=== PATIENT | female | born 1970 | race Caucasian/White ===

== ENCOUNTER 2024-10-04 08:20 | Day surgery (SDC) | payer OTHER, SELFPAY ==
[2024-10-03 09:07] VITALS: BMI 28.5
[2024-10-04] VITALS (12 sets, daily range): BP systolic 94–108; BP diastolic 45–69; PULSE 60–85; RESP 13–19; TEMP 36.1–37.4; O2SAT 96–100; BMI 28.3
--- NOTE | 2024-10-04 | PATH_ITS ---
[facility] Accession Number: [id number] No. of containers..01 Tissue . 01 Material submitted: . uterus - UTERUS WITH CERVIX AND BILATERAL FALLOPIAN TUBES . 01 Diagnosis: UTERUS WITH CERVIS AND BILATERAL FALLOPIAN TUBES, TOTAL LAPAROSCOPIC HYSTERECTOMY WITH BILATERAL SALPINGECTOMY (WEIGHT 270 GRAMS): Cervix with prominent Nabothian gland cysts; negative for significant atypia. Endocervix with prominent Nabothian gland cysts; negative for significant atypia. Proliferative endometrium; negative for significant atypia. Myometrium with two intramural leiomyomas (12 mm and 15 mm in greatest dimension). Uterine serosa with no significant histomorphologic abnormality. Longer-described fallopian tube, complete cross-sections, with rare benign paratubal cysts (up to 17 mm in greatest dimension); negative for significant atypia. [place]-described fallopian tube, complete cross-sections; negative for significant atypia. [facility] 10/09/2024 1050 Local . 01 Electronically signed: . Annie Richards MD, Pathologist NPI- [id number] . 01 Gross description: . Received in formalin with two patient identifiers and uterus with cervix and bilateral fallopian tubes, is a fragmented uterus (270 grams, 11.5 x 10.4 x 6.8 cm in aggregate) with a detached, opened cervix reapproximated to measure 4.4 x 3.1 cm with a slit-like os, 0.8 cm in diameter. Two detached, unoriented, fimbriated fallopian tubes (6.6 x 1.0 cm and 5.0 x 0.5 cm) and no additional adnexa. The ectocervix is nunez, smooth, and glistening, and the paracervical margin is inked blue. The attached portion of endocervical canal has nunez, herringbone, unremarkable mucosa. The serosa is nunez and smooth with no hemorrhage or adhesion identified. The intact portion of endometrial cavity measures 4.4 cm from cornu to cornu, and 3.2 cm in length, with pink lush endometrium that averages 0.3 cm thick. The myometrium is significantly trabecular and measures up to 3.5 cm in maximum thickness with two well-circumscribed white whorled nodules (1.5 x 1.3 x 1.3 cm and 1.2 x 0.9 x 0.9 cm). The smaller nodules has centrally located pinpoint areas of hemorrhage. . Both tubes have violaceous, smooth serosa with cystic structures up to 1.7 cm in greatest dimension filled with nunez, serous fluid. The lumina are stellate and unremarkable. . Multiple Games Dealer sections are submitted as follows: A1-A2: Cervix. A3: Full thickness composite section with larger nodule. A4: Full thickness composite section with smaller hemorrhagic nodule. A5: Longer fallopian tube to include one-half of bisected fimbriae and cross sections. A6: Cross section of longer fallopian tube with cysts. A7: [place] fallopian tube to include one-half of bisected fimbriae and cross sections. ([id number]) /MRV 10/05/2024 1750 Local . 01 Pathologist provided ICD-10: N92.0, D25.9, N94.10, D50.0 . 01 CPT . 483062 Specimen Comment: A courtesy copy of this report has been sent to [phone] Performed at: [address] [facility] [address] [address], [place], [place] [id number] MD Quentin Denson MD Phone: [phone]
--- NOTE | 2024-10-04 08:49 | PM.PREOP ---
Pre-operative Note COVID-19 COVID-19 status: Not tested Interval Note History & Physical reviewed/Exam performed by Physician: Yes Changes to H&P: No
[2024-10-04] MEDS: ACETAMINOPHEN 325 MG TABLET 975 MG PO (09:09)
[2024-10-04] MEDS: LACTATED RINGERS 1,000 ML 42 ML IV (09:11)
[2024-10-04] MEDS: CEFAZOLIN 2 GM/100 ML PREMIX 100 ML IV (10:13)
--- NOTE | 2024-10-04 10:35 | SUR.OPER ---
Lithotomy on padded OR bed. [place] Pad Positioner under torso. Head on pillow, arms padded and tucked at sides. Legs secured in padded yellow fins stirrups.
[2024-10-04] MEDS: BUPIVACAINE 0.5% W/ EPI (PF) 30 ML VIAL INJ (10:51)
--- NOTE | 2024-10-04 12:02 | PM.GYNOP.1 ---
Operative Date/Time/Diagnoses Date of procedure: 10/04/24 Time of procedure: 10:15 Pre-op diagnosis: Menorrhagia Uterine fibroids Post-op diagnosis: same Procedure & Clinicians Procedure: Procedures Operation Date: 10/04/24 09:45 Actual Procedure Side Surgeon p Total Laparoscopic Hysterectomy with bilateral Salpingectomy Patel Boland MD Indications: Astrid is a soto 54-year-old , LMP 07/30/2024 through the present, who presents in referral for evaluation of a long history of menorrhagia and the presence of uterine fibroids. Patient experienced menarche at age 14 and has had 2 vaginal births. She has had regular predictable periods up to this point which last as long as 10 or 11 days. In the earlier portion of each menses, she has flooding resulting in accidents which are extremely disruptive to her life and work. Her last Pap was 3 years ago and it was normal as have all of her Paps during her reproductive life. She has had 2 endometrial biopsies performed with her most recent in 2015 both of which were normal. Her blood loss with each period has been so significant that he has had a total of 5 iron infusions in the last 10 months. Review of systems is also notable for deep dyspareunia which is longstanding and positional. Patient has been dealing with the symptoms extended period of time and would very much like definitive therapy. We discussed all options and after discussion of conservative, medical based, and surgical options, patient would very much like to proceed with total laparoscopic hysterectomy with bilateral salpingectomy. She presents today for her scheduled surgery. Surgeon: Patel Boland Automotive Mechanical Engineer: Heidi Arriola Anesthesia Type: General Operative Notes Findings: The uterus is approximately 8 weeks in size and normal in shape and contour. Fallopian tubes and ovaries both appeared normal as well posterior cul-de-sac shows no evidence of scarring or endometriosis. Similarly the anterior cul-de-sac is free of scarring and adhesions. Appendix appears to be normal. Liver edge is normal gallbladder is prominent but uninflamed and unscarred. Closure Type: primary Specimen(s): left tube, right tube and uterus Applied: catheter Estimated blood loss (mL): 100 Blood products transfused: none Procedure in detail: With the patient in modified dorsal lithotomy position preparations were made by prepping and draping the patient in usual manner for vaginal surgery and insertion of León catheter. A pre-surgical time-out was then taken in accordance with [facility] policy. A bivalve speculum was then placed in the vagina and the cervix visualized. The anterior lip of the cervix was then grasped with a single-tooth tenaculum. The uterus was sounded to 9 cm, the endocervical canal dilated slightly, and a VCare uterine manipulator with a large colpotomy cup was placed. The umbilicus was then infiltrated with 0.5% Marcaine with epinephrine. A 1 cm umbilical incision was made transversely and a Veress needle was used to insufflate the abdominal cavity with carbon dioxide. Once the abdomen was appropriately insufflated, a 5 mm trocar and sleeve were then placed through the umbilical incision. The scope was placed through the trocar and the initial assessment of the intra-abdominal contents carried out. A 2nd and 3rd 5 mm port was then placed 1st in the right mid quadrant from then the left mid quadrant by infiltration of the skin and subcutaneous tissues, a 1 cm transverse incision and insertion of the 5 mm bladeless port. Using a 3 puncture technique, the abdomen and pelvis were inspected laparoscopy and photographically documented. Uterus is mobilized with the VCare manipulator and attention turned to the left adnexa. The distal tube was then grasped and the fimbria varicose divided after coagulation with the PowerSeal device. The dissection was then carried out toward the cornua and the fallopian tube amputated. The tube was removed through a 5 mm port and dissection was then carried down using the PowerSeal device so as to divide the utero-ovarian ligament and the round ligament with blunt and sharp dissection of the broad down to the level of the uterine artery. The uterine artery was then skeletonized after development of a bladder flap, coagulated, and divided. Once hemostasis was assured on the left side attention was turned to the right and the tube, utero-ovarian ligament, round ligament, and broad ligament were dissected in a fashion exactly the same as it had been on the left. The right uterine artery was then visualized after skeletonization and coagulated and divided. The uterus was seen to jeff after coagulation of both your arteries and the cup was identified through the vaginal muscularis at its insertion with the body of the cervix. Circumferential excision of the vaginal cup was accomplished without difficulty using monopolar current and the uterus mobilized. The uterus was then removed through the vagina and the vaginal cuff closed [id number] with a series of 0 Vicryl [id number] stitches. Hemostasis was excellent, the abdomen was re-insufflated, and the pelvis inspected laparoscopically. The pelvis was inspected for any abnormality or bleeding, and the ureters were each seen to be peristalsing freely. With complete hemostasis assured, the pneumoperitoneum was vented and the ports removed. All of the 5 mm ports were then closed with 4-0 Monocryl on the skin using inverted interrupted sutures. Skin glue was placed and after the glue was dried, an appropriate dressing was applied. The case was then terminated, the patient awakened, and then transferred to PACU after having tolerated the procedure well. Complications: none Post-operative Condition: stable Disposition: PACU Plan for aftercare: Recovery in ambulatory surgery in discharge home later today if pain is under control and she is tolerating oral intake well.
[2024-10-04] MEDS: ONDANSETRON 4 MG/2 ML INJ IV (12:30)
[2024-10-04] MEDS: HYDROMORPHONE 1 MG INJ IV (12:58)
[2024-10-04] MEDS: LACTATED RINGERS 1,000 ML 100 ML IV (13:00)
[2024-10-04] MEDS: SODIUM CHLORIDE 0.9% 500 ML 1000 ML IV (14:51)
[2024-10-04] MEDS: OXYCODONE IR 5 MG TABLET PO (15:37)
[2024-10-04] MEDS: ACETAMINOPHEN 325 MG TABLET 650 MG PO (17:38)
[2024-10-04] MEDS: KETOROLAC 30 MG/ML VIAL IV (18:49)
[2024-10-04] MEDS: DOCUSATE 100 MG CAPSULE 200 MG PO (20:58)
[2024-10-05] MEDS: ACETAMINOPHEN 325 MG TABLET 650 MG PO ×3 (00:28→11:00)
[2024-10-05] MEDS: KETOROLAC 30 MG/ML VIAL IV ×2 (00:28→06:21)
[2024-10-05 05:05] LABS: Add Manual Diff / Slide Review NO; Basophils Absolute Auto 0 /uL (0-100); Basophils Percent Auto 0.1 % (0-2); Eosinophils Absolute Auto 0 /uL (0-450); Eosinophils Percent Auto 0.2 % (2-4); Hematocrit 33.4 % (36-46); Hemoglobin 11.1 g/dL (12.0-16.0); Lymphocytes Absolute Auto 1200 /uL (1100-4500); Lymphocytes Percent Auto 8.7 % (25-40); Mean Corpuscular HGB Conc 33.1 % (30-36); Mean Corpuscular Hemoglobin 31.2 PG (26-34); Mean Corpuscular Volume 94.2 fL (80-100); Monocytes Absolute Auto 1100 /uL (0-900); Monocytes Percent Auto 7.8 % (3-14); Neutrophils Absolute Auto 11700 /uL (1500-7000); Neutrophils Percent Auto 83.2 % (50-75); Platelet Count 215 X10^3/uL (150-400); Red Blood Cell Count 3.55 X10^6/uL (4.0-5.2); Red Cell Distribution Width 12.1 % (11.6-14.8); White Blood Cell Count 14.1 X10^3/uL (4.5-11.0)
[2024-10-05 06:28] VITALS: BP 107/44; PULSE 57; RESP 15; O2SAT 97
--- NOTE | 2024-10-05 07:48 | CM.DANOTE ---
Initial DCP Assessment Visit Note Reviewed EMR and team rounds for pt's medical status and updates. Met with pt at bedside to introduce self and role, pt was found to be alert/oriented, expressing feeling comfortable and was asking about when she could discharge back home. Pt lives independently at baseline with her spouse in their own home in [place]. Either her mother or spouse will transport her home later this morning. No CM d/c assistance or resource needs are identified at this time. Payor: [facility] Attending: Dr. Boland Pt is a 54 year-old F post-op day 1 from a Bilateral laparoscopic total hysterectomy. Pt has a hx of excessive menstrual periods resulting in iron deficiency anemia secondary to blood loss and uterine fibroids. She did not have any surgical or postoperative complications, and pain is very minimal at this time. She shared that she is voiding and has been up walking with no lightheadedness this morning. DCP will continue to monitor for any further evolving d/c needs, however none are anticipated. Discharge Planning/Care Management Advanced directive, confirm from FAMILY Start: 10/04/24 17:50 Freq: Q24H Status: Active Protocol: Document 10/04/24 17:50 YAD (Rec: 10/04/24 17:50 YAD [id number]) Advance Directive, confirm on record Time 17:50 Person contacted Pt Copy received No CM Discharge Assessment Start: 10/05/24 07:47 Freq: Status: Active Protocol: Document 10/05/24 07:47 DPL (Rec: 10/05/24 07:48 DPL [id number]) Discharge Planning Assessment Assigned Manager Express MARISABEL Zheng Advance Directives? Yes Advance Directives on File No History Provided By Patient,Medical Record Has Patient been admitted in last 30 No days? Prior Living Arrangements House Household Members spouse Independent with ADL's Yes Is patient alert and oriented? Yes Comment N/A Caregiver for Another No Comment N/A Comment No d/c needs are identified at this time. Transportation Arrangement Mother or spouse. Referrals Initiated None needed Whiteboard Updated in Patient Room with Yes name and ext. # of Manager Express Review Status In Process Please Provide Date Initial DC 10/05/24 Assessment Was Performed Pre-Anesthesia Assessment Start: 10/03/24 09:07 Freq: Status: Complete Protocol: Document 10/03/24 09:07 LB (Rec: 10/03/24 09:10 LB [id number]) Pre-Anesthesia Assessment PAC Comment 10/03/24 Chart review. Patient Information Reviewed Via Chart Review Comment No testing identified. Primary Care Provider Kelly Herrera Seen Specialist in Last 12 Months Yes Specialist Seen Residue Furnace Operator Primary Language Niuean Preferred Language Niuean Corporate Strategy Associate Required No Height 162.56 cm Weight 75.296 kg Body Mass Index (BMI) 28.5 Anesthesia Review Requested No Upper Lining Cementer No Smoking Status Never smoker Patient is completely paralyzed or No completely immobile Is patient on oxygen? No Hx Sleep Apnea No Currently Taking a Beta Sonny No Anti-Coagulant Therapy No Cardiac Testing No Hx Pacemaker/ICD No Cardiac Clearance Received Not Applicable Chronic UTI No Urinary Catheter Present No Diabetes No Marital Status Patient Discharge Plan Description Return Home Emergency Contact Name Ed Coulter - Emergency Contact
[2024-10-05] MEDS: DOCUSATE 100 MG CAPSULE 200 MG PO (08:04)
--- NOTE | 2024-10-05 10:22 | PM.DS.1 ---
History of Present Illness History of Present Illness Date Patient Seen: 10/05/24 Time Patient Seen: 10:23 Chief complaint: Bilateral Laparoscopic Total Hysterectomy Narrative: Astrid is a soto 54-year-old , LMP 07/30/2024 through the present, who presents in referral for evaluation of a long history of menorrhagia and the presence of uterine fibroids. Patient experienced menarche at age 14 and has had 2 vaginal births. She has had regular predictable periods up to this point which last as long as 10 or 11 days. In the earlier portion of each menses, she has flooding resulting in accidents which are extremely disruptive to her life and work. Her last Pap was 3 years ago and it was normal as have all of her Paps during her reproductive life. She has had 2 endometrial biopsies performed with her most recent in 2015 both of which were normal. Her blood loss with each period has been so significant that he has had a total of 5 iron infusions in the last 10 months. Review of systems is also notable for deep dyspareunia which is longstanding and positional. Patient has been dealing with the symptoms extended period of time and would very much like definitive therapy. We discussed all options and after discussion of conservative, medical based, and surgical options, patient would very much like to proceed with total laparoscopic hysterectomy with bilateral salpingectomy. She presents today for her scheduled surgery. Discharge Providers Provider Date of admission: 10/04/2024 Discharge Date: 10/05/24 Primary care physician: Kelly Herrera MD Discharge provider: Patel Boland MD Summary Hospital Course Discharge Diagnosis: Intractable menorrhagia Anemia due to chronic blood loss Hospital Course: Astrid was admitted on the morning 10/04/2024 and underwent an uneventful total laparoscopic hysterectomy with bilateral salpingectomy. Full details of the procedure well summarized on my operative note of that date. Following her surgery the patient has done extremely well with prompt return of bowel and bladder function, she is ambulating independently, tolerating regular diet, and her pain is well relieved with oral pain medications. She will be discharged at this time to home in an afebrile normotensive condition after counseling regarding precautionary symptoms, limitations of activity, medications, and plans for follow-up which will be in 2 weeks. Medications at discharge will include resumption of any medications she was taking prior to admission as well as oxycodone 5 mg every 6 hours as needed for pain, and Cipro 500 mg p.o. b.i.d. x5 days as UTI prophylaxis following catheterization. Status at Discharge Cognitive/behavioral status at discharge: oriented Functional status at discharge: independent ambulation Overall status at discharge: patient is progressing back to baseline Time Spent with Patient Time spent: Less than 30 minutes Exam Vital Signs (past 8 hours): - 10/05/24 06:28 Pulse Rate 57 L Respiratory Rate 15 Blood Pressure 107/44 L Pulse Oximetry 97 Oxygen Flow Rate 0 Oxygen Delivery Method Room Air Oxygen Flow Rate 0 Const General: cooperative and comfortable Nutritional Appearance: average body habitus Orientation: alert and oriented x3 HENMT Head: normal to inspection, atraumatic and abrasion Ears: hearing grossly normal bilaterally Face and sinus: face symmetric Eyes General: appearance normal, both eyes and all related structures Conjunctivae: conjunctivae normal Sclera: sclerae normal EOM: EOM intact bilaterally Neck Neck: normal visual inspection Resp Effort & Inspection: normal respiratory effort and able to speak in complete sentences Auscultation: clear to auscultation bilaterally Cardio Rate: regular rate Rhythm: regular rhythm Heart Sounds: S1 normal, S2 normal and no murmurs GI Inspection: normal to inspection and incision (Surgical dressings clean and dry) Palpation: soft, no hepatosplenomegaly and tender (Mild, diffuse postsurgical tenderness) Auscultation: normoactive bowel sounds External Female Exam: other (No significant bleeding noted) Extrem General: no calf tenderness Psych Appearance: grossly normal Mental Status: mental status grossly normal Speech and Movement: speech and movement normal Mood: congruent mood Affect: normal affect Attitude: cooperative Thought Process: normal Thought Content: normal Judgment: judgment good Objective Labs 10/05/24 04:23 Labs: Laboratory Results - last 24 hr 10/05/24 04:23 WBC 14.1 H RBC 3.55 L Hgb 11.1 L Hct 33.4 L MCV 94.2 MCH 31.2 MCHC 33.1 RDW 12.1 Plt Count 215 Neut % (Auto) 83.2 H Lymph % (Auto) 8.7 L Lumpkin % (Auto) 7.8 Eos % (Auto) 0.2 L Baso % (Auto) 0.1 Neut # (Auto) 20044 H Lymph # (Auto) 1200 [place]kin # (Auto) 1100 H Eos # (Auto) 0 Baso # (Auto) 0 PFSH Social History household members: spouse Smoking Status: Never smoker Discharge Assessment & Plan Assessment and Plan Assessment: Intractable menorrhagia Anemia due to chronic blood loss Status post total laparoscopic hysterectomy with bilateral salpingectomy Plan of Treatment: Routine postoperative care with follow-up planned for 2 weeks after surgery. Discharge Plan Discharge Plan Patient Disposition: Home Provider Discharge Comment: Please review the written instructions she received when you were discharged from the hospital. Your follow-up appointment is scheduled for 2 weeks after your surgery and I look forward to seeing you then. If however in the meanwhile you have any issues, questions, or other concerns, please contact me either through the office phone at [phone], or via the patient portal. Discharge orders & Medications Discharge Orders: Discharge (Order); Ordered 10/05/24 Ordered By: Patel Boland Prescriptions: New oxycodone 5 mg Tablet 5 mg PO Q6H PRN (Reason: Pain, Moderate (4-6)) Qty: 12 0RF ciprofloxacin HCl [Cipro] 500 mg tablet 500 mg PO BID 5 Days Qty: 10 0RF Follow up/Referrals: Kelly Herrera MD [Primary Care Provider] - Patel Boland MD [Physician] - Diet/Activity/Treatments Diet: Diet as Tolerated Activity: As tolerated Other treatments: Icik-pnz-daqpvoi Tylenol and/or ibuprofen may be used as needed for additional pain relief. Zgun-plp-qguqyvl stool softeners and/or MiraLax may be used as needed for constipation. Skin/Wound/Dressing Care Report to your healthcare provider any signs of infection, such as:: chills, fever, increased pain, unusual drainage and unusual redness Dressing: Dressings should be removed on the morning of 10/06/2024 Visit Report/Discharge Packet Instructions: DI for Hysterectomy, DI for Laparoscopy, DI for Prescription Opioid Use Stand Alone Forms: Surgery Discharge Print Language: Hong Konger Discharge Data Primary Care Provider: Kelly Herrera Attending Provider: Patel Boland
--- NOTE | 2024-10-05 11:15 | PC.NURSE ---
Patient is A&OX4, VSS, afebrile on RA. She reports pain to lower vaginal region and abdomen is tolerable and controlled with scheduled pain medications. Allevyn sites c/d/i x3 to abdomen, +BS x4, she reports passing some gas this a.m. She denies n/v and is ambulating in the grubbs this a.m. arrived to evaluate patient at bedside and patient is cleared for discharge home today with her mother. Patient acknowledges understanding of medications, activity, site care/ s/sx of infection as well as follow up appointment. She is escorted via w/ch to private vehicle with her mother at approximately 11 a.m.
== END 2024-10-05 11:05 | disposition home or self-care (01) ==
LOC: OR 08:21 → AC 10:54
PROVIDERS: PCP Family Medicine; Referring Provider Obstetrics & Gynecology; Visit Provider Obstetrics & Gynecology
PROC: 0UT94ZZ Resection of Uterus, Percutaneous Endoscopic Approach (ICD-10-PCS; CPT 58573; principal; 2024-10-04 09:45)
DX: N92.0 Excessive and frequent menstruation with regular cycle (principal); D25.9 Leiomyoma of uterus, unspecified; N88.8 Other specified noninflammatory disorders of cervix uteri; D25.1 Intramural leiomyoma of uterus; N83.8 Other noninflammatory disorders of ovary, fallopian tube and broad ligament
CPT/HCPCS: 58573; 58571; 36415; 81025; 85025; J0330; J0690; J1100; J1171; J1885; J2250; J2405; J2704; J3010; J3490